=== PATIENT | male | born 1965 | race Caucasian/White ===

== ENCOUNTER 2022-08-08 10:42 | Observation (INO) ==
[2022-08-08] MEDS ORDERED: NS 500 ML IV 500 ML IV ONE (11:44)
[2022-08-08 13:45] LABS: AMYLASE 51 Units/L (25-115); LIPASE 148 Units/L (73-393)
[2022-08-08 14:28] LABS: BASOPHILS # (AUTO) 0.1 X10^3/uL (0.0-0.1); BASOPHILS % (AUTO) 1.8 % (0.2-1.0); EOSINOPHILS # (AUTO) 0.1 x10^3/uL (0.0-0.2); EOSINOPHILS % (AUTO) 2.7 % (0.9-2.9); HEMOGLOBIN 13.7 g/dL (13.5-18.0); LYMPHOCYTES # (AUTO) 1.8 X10^3/uL (1.3-2.9); LYMPHOCYTES % (AUTO) 40.1 % (21.0-51.0); MEAN CORPUSCULAR HEMOGLOBIN 29.5 pg (27.0-34.0); MEAN CORPUSCULAR VOLUME 84.1 fL (80.0-100.0); MEAN PLATELET VOLUME 9.1 fL (7.4-11.0); MONOCYTES # (AUTO) 0.5 x10^3/uL (0.3-0.8); MONOCYTES % (AUTO) 10.7 % (0.0-13.0); NEUTROPHILS % (AUTO) 44.7 % (42.0-75.0); RED BLOOD COUNT 4.64 X10^6/uL (4.7-6.0); RED CELL DISTRIBUTION WIDTH 13.8 % (11.6-16.5); WHITE BLOOD COUNT 4.5 X10^3/uL (3.6-10.0)
[2022-08-08] MEDS: NS 1,000 ML IV 1,000 ML IV SCH ×2 (14:33→22:01)
[2022-08-08 14:36] LABS: ALANINE AMINOTRANSFERASE 59 Units/L (12-78); ALBUMIN 3.3 g/dL (3.4-5.0); ALKALINE PHOSPHATASE 63 Units/L (46-116); ASPARTATE AMINO TRANSFERASE 33 Units/L (15-37); BLOOD UREA NITROGEN 11 mg/dL (7-18); CALCIUM 8.3 mg/dL (8.5-10.1); CARBON DIOXIDE 25.4 mmol/L (21-32); CHLORIDE 107 mmol/L (98-107); COR CA(FOR HYPOALB) 8.9 mg/dL (8.5-10.1); COR NA(FOR HYPERGLY) 142 mmol/L (136-145); CREATININE 1.02 mg/dL (0.70-1.30); SODIUM 141 mmol/L (136-145); TOTAL PROTEIN 6.8 g/dL (6.4-8.2); eGFR NON BLACK RACES > 60 (>60)
[2022-08-08] MEDS: FLAGYL IV PREMIX 500 MG BAG 500 MG/100 ML BAG IV SCH ×2 (14:56→20:53)
[2022-08-08 15:05] LABS: BILIRUBIN,URINE NEGATIVE (NEGATIVE); BLOOD/HEMOGLOBIN,URINE NEGATIVE (NEGATIVE); GLUCOSE, URINE NEGATIVE (NEGATIVE); KETONES,URINE NEGATIVE (NEGATIVE); LEUKOCYTE ESTERASE ,URINE NEGATIVE (NEGATIVE); NITRITES,URINE NEGATIVE (NEGATIVE); PROTEIN,URINE NEGATIVE (NEGATIVE); UROBILINOGEN,URINE NORMAL (NORMAL)
[2022-08-08 15:06] LABS: COLOR,URINE STRAW (YELLOW)
[2022-08-08 15:07] LABS: APPEARANCE,URINE CLEAR (CLEAR)
[2022-08-08] MEDS ORDERED: NS 100 ML IV 100 ML ONE (16:27)
[2022-08-08] MEDS: CIPRO IV 400 MG PREMIX* 400 MG/200 ML IV.SOLN. IV SCH ×2 (16:37→21:45)
[2022-08-08] MEDS ORDERED: DILAUDID INJ IVP PRN (17:27)
[2022-08-08] MEDS: ZOFRAN INJ 4 MG VIAL IVP PRN (17:54)
[2022-08-08] MEDS ORDERED: BENADRYL CAP/TAB 25 MG PO PRN (17:56)
--- NOTE | 2022-08-08 17:59 | CT ---
HISTORYABD PAIN, N/V/D r/o pancreatitisSTUDYABDOMEN/PELVIS WITH CONCOMPARISONTECHNIQUEMultiple axial images of the abdomen and pelvis were obtained from the lung bases to the pubic symphysis after the administration of IV contrast. Dose reduction techniques including Automated Exposure Control (AEC) and adjustment of mA and kV were utilized.FINDINGSThe lung bases are clear without effusion. The heart size is normal. There is diffuse fatty infiltration of the liver. The gallbladder, pancreas, and adrenal glands are normal. The spleen is enlarged measuring up to 17.5 x 16.6 cm. The kidneys are normal in size without stone or hydronephrosis. The stomach and small bowel loops and appendix are normal. Large bowel loops are unremarkable. There is questionably a masslike filling defect in the rectum. Consider correlation with digital rectal exam. Urinary bladder is normal. There is a fat containing right inguinal hernia. There are multiple fat containing periumbilical hernias. There are no worrisome bone marrow lesions.IMPRESSION1. Fatty infiltration of the liver.2. Splenomegaly.3. Question mass in the rectum.4. Fat containing right inguinal hernia and multiple periumbilical hernias.Electronically signed by: Arnold Chavarria (Aug 08, 2022 17:58:00)
[2022-08-08 19:20] LABS: CRYPTOSPORIDIUM PARVUM ANTIGEN NEGATIVE (NEGATIVE); GIARDIA LAMBLIA ANTIGEN NEGATIVE (NEGATIVE)
[2022-08-09] MEDS: NS 1,000 ML IV 1,000 ML IV SCH ×2 (02:01→17:18)
[2022-08-09] MEDS: FLAGYL IV PREMIX 500 MG BAG 500 MG/100 ML BAG IV SCH ×3 (03:15→20:00)
[2022-08-09 05:08] LABS: BASOPHILS % (AUTO) 0.8 % (0.2-1.0); EOSINOPHILS # (AUTO) 0.1 x10^3/uL (0.0-0.2); EOSINOPHILS % (AUTO) 2.9 % (0.9-2.9); HEMATOCRIT 38.5 % (42.0-54.0); HEMOGLOBIN 13.3 g/dL (13.5-18.0); LYMPHOCYTES # (AUTO) 1.9 X10^3/uL (1.3-2.9); LYMPHOCYTES % (AUTO) 43.6 % (21.0-51.0); MEAN CORPUSCULAR HEMOGLOBIN 29.1 pg (27.0-34.0); MEAN CORPUSCULAR HGB CONC 34.6 g/dL (33.0-35.0); MEAN CORPUSCULAR VOLUME 83.9 fL (80.0-100.0); MEAN PLATELET VOLUME 8.7 fL (7.4-11.0); MONOCYTES # (AUTO) 0.5 x10^3/uL (0.3-0.8); MONOCYTES % (AUTO) 10.2 % (0.0-13.0); NEUTROPHILS # (AUTO) 1.9 x10^3/uL (2.2-4.8); NEUTROPHILS % (AUTO) 42.5 % (42.0-75.0); RED BLOOD COUNT 4.58 X10^6/uL (4.7-6.0); RED CELL DISTRIBUTION WIDTH 14.1 % (11.6-16.5); WHITE BLOOD COUNT 4.5 X10^3/uL (3.6-10.0)
[2022-08-09 05:19] LABS: ALANINE AMINOTRANSFERASE 64 Units/L (12-78); ALBUMIN 3.2 g/dL (3.4-5.0); ALKALINE PHOSPHATASE 56 Units/L (46-116); ASPARTATE AMINO TRANSFERASE 38 Units/L (15-37); BLOOD UREA NITROGEN 10 mg/dL (7-18); CALCIUM 8.7 mg/dL (8.5-10.1); CARBON DIOXIDE 32.6 mmol/L (21-32); CHLORIDE 108 mmol/L (98-107); COR CA(FOR HYPOALB) 9.3 mg/dL (8.5-10.1); COR NA(FOR HYPERGLY) 146 mmol/L (136-145); CREATININE 1.21 mg/dL (0.70-1.30); SODIUM 145 mmol/L (136-145); TOTAL PROTEIN 6.7 g/dL (6.4-8.2); eGFR NON BLACK RACES > 60 (>60)
--- NOTE | 2022-08-09 07:07 | RAD ---
HISTORYAbdominal painSTUDYKUBCOMPARISONCT abdomen pelvis 08/08/2022FINDINGSThe abdominal gas pattern is nonspecific and nonobstructive. No abnormal masses or abnormal calcifications are identified. Regional skeleton is intact. There is contrast throughout the colon from the patient's prior CT.IMPRESSIONUnremarkable KUBElectronically signed by: MEGHANN ELAINE (Aug 09, 2022 07:06:13)
[2022-08-09] MEDS: CIPRO IV 400 MG PREMIX* 400 MG/200 ML IV.SOLN. IV SCH ×2 (09:21→21:22)
[2022-08-09] MEDS ORDERED: TORADOL 30 MG VIAL IVP PRN (10:04)
[2022-08-09] MEDS ORDERED: MORPHINE SULFATE INJ 2 MG INJ IVP PRN (10:36)
--- NOTE | 2022-08-09 10:53 | DR.PROGNOT ---
Hospital Progress Notes - Progress Note for Day of: Progress Note Date: 08/09/22 - Chief Complaint Chief Complaint: had one loose BM today ..no vomiting . less abdominal pain .. more of a back pain today .. C Dif was negative . abdominal CT showed abnormal rectum , possible mass . - Past Medical Family Social History Past Med/Fam/Surg Hx: No changes since H&P Allergies: Allergies No Known Drug Allergies Allergy (Verified 08/08/22 14:35) - Review Of Systems ROS: No change since H&P - Vital Signs Vital Signs: Temperature 98.0 F Pulse Rate [Left Radial] 52 Respiratory Rate 18 Blood Pressure [Left Arm] 119/62 Blood Pressure [Right Arm] 143/72 O2 Sat by Pulse Oximetry 98 - Physical Exam Oriented: Normal Eyes: Normal Ear: Normal Nose: Normal Throat: Normal Respiratory: Normal Cardiovascular: Normal : Normal GI:Auscultation: Normal GI:Palpation: Normal GI: Tenderness: Other (soft abdomn with lower and RLQ tenderness .. BS+) Speech Pattern: Clear, Appropriate - Laboratory and Diagnostics Result Diagrams: 08/09/22 04:07 08/09/22 04:07 Labs: 08/08/22 17:45 Stool - Final Laboratory WBC 4.5 X10^3/uL (3.6-10.0) 08/09/22 04:07 RBC 4.58 X10^6/uL (4.7-6.0) L 08/09/22 04:07 Hgb 13.3 g/dL (13.5-18.0) L 08/09/22 04:07 Hct 38.5 % (42.0-54.0) L 08/09/22 04:07 MCV 83.9 fL (80.0-100.0) 08/09/22 04:07 MCH 29.1 pg (27.0-34.0) 08/09/22 04:07 MCHC 34.6 g/dL (33.0-35.0) 08/09/22 04:07 RDW 14.1 % (11.6-16.5) 08/09/22 04:07 Plt Count 162 X10^3/uL (150.0-450.0) 08/09/22 04:07 MPV 8.7 fL (7.4-11.0) 08/09/22 04:07 Neut % (Auto) 42.5 % (42.0-75.0) 08/09/22 04:07 Lymph % (Auto) 43.6 % (21.0-51.0) 08/09/22 04:07 [place] % (Auto) 10.2 % (0.0-13.0) 08/09/22 04:07 Eos % (Auto) 2.9 % (0.9-2.9) 08/09/22 04:07 Baso % (Auto) 0.8 % (0.2-1.0) 08/09/22 04:07 Neut # (Auto) 1.9 x10^3/uL (2.2-4.8) L 08/09/22 04:07 Lymph # (Auto) 1.9 X10^3/uL (1.3-2.9) 08/09/22 04:07 [place] # (Auto) 0.5 x10^3/uL (0.3-0.8) 08/09/22 04:07 Eos # (Auto) 0.1 x10^3/uL (0.0-0.2) 08/09/22 04:07 Baso # (Auto) 0.0 X10^3/uL (0.0-0.1) 08/09/22 04:07 Absolute Nucleated RBC 0.0 /100WBC 08/09/22 04:07 Sodium 145 mmol/L (136-145) 08/09/22 04:07 Corrected Sodium 146 mmol/L (136-145) H 08/09/22 04:07 Potassium 4.4 mmol/L (3.5-5.1) 08/09/22 04:07 Chloride 108 mmol/L (98-107) H 08/09/22 04:07 Carbon Dioxide 32.6 mmol/L (21-32) H 08/09/22 04:07 BUN 10 mg/dL (7-18) 08/09/22 04:07 Creatinine 1.21 mg/dL (0.70-1.30) 08/09/22 04:07 Est GFR (MDRD) Af Amer > 60 (>60) 08/09/22 04:07 Est GFR (MDRD) Non-Af > 60 (>60) 08/09/22 04:07 Glucose 140 mg/dL (65-99) H 08/09/22 04:07 Calcium 8.7 mg/dL (8.5-10.1) 08/09/22 04:07 Corrected Calcium 9.3 mg/dL (8.5-10.1) 08/09/22 04:07 Total Bilirubin 0.50 mg/dL (0.2-1.0) 08/09/22 04:07 AST 38 Units/L (15-37) H 08/09/22 04:07 ALT 64 Units/L (12-78) 08/09/22 04:07 Alkaline Phosphatase 56 Units/L (46-116) 08/09/22 04:07 Total Protein 6.7 g/dL (6.4-8.2) 08/09/22 04:07 Albumin 3.2 g/dL (3.4-5.0) L 08/09/22 04:07 Globulin 3.5 g/dL (2.5-4.5) 08/09/22 04:07 Albumin/Globulin Ratio 0.9 Ratio (1.1-2.1) L 08/09/22 04:07 Amylase 51 Units/L (25-115) 08/08/22 13:05 Lipase 148 Units/L (73-393) 08/08/22 13:05 Specimen Type Clean catch urine 08/08/22 14:54 Urine Color Straw (YELLOW) 08/08/22 14:54 Urine Appearance Clear (CLEAR) 08/08/22 14:54 Urine pH 6.0 (5.0 - 8.0) 08/08/22 14:54 Ur Specific [place] 1.020 (1.000-1.030) 08/08/22 14:54 Urine Protein Negative (NEGATIVE) 08/08/22 14:54 Urine Glucose (UA) Negative (NEGATIVE) 08/08/22 14:54 Urine Ketones Negative (NEGATIVE) 08/08/22 14:54 Urine Blood Negative (NEGATIVE) 08/08/22 14:54 Urine Nitrite Negative (NEGATIVE) 08/08/22 14:54 Urine Bilirubin Negative (NEGATIVE) 08/08/22 14:54 Urine Urobilinogen Normal (NORMAL) 08/08/22 14:54 Ur Leukocyte Esterase Negative (NEGATIVE) 08/08/22 14:54 Stl Occult Blood (IFOB) Negative (NEGATIVE) 08/08/22 17:45 Stool for White Cells Positive (NEGATIVE) A 08/08/22 17:45 Stl C. diff Tox B Gene Negative (NEGATIVE) 08/08/22 17:45 Stl C. diff [id number] Presumptive negative (NEGATIVE) 08/08/22 17:45 Cryptosporid parvum Ag Negative (NEGATIVE) 08/08/22 17:45 Giardia lamblia Ag Negative (NEGATIVE) 08/08/22 17:45 - Assessment and Plan 2: severe diarrhea , possible rectal mass . abdominal pain ,. for colonoscopy in AM . on bowel prep today ..
[2022-08-09] MEDS ORDERED: GOLYTELY or GAVILYTE or Equivalent PO NR (11:00)
[2022-08-09] MEDS: ZOFRAN INJ 4 MG VIAL IVP PRN (17:07)
--- NOTE | 2022-08-09 21:53 | DR.UPDATE ---
H&P Update Prescription drug monitoring program results: PDMP reviewed and no concerns identified H&P Reviewed: Yes Any changes to H&P?: Yes Changes noted:: WAS A DIRECT ADMISSION FROM THE OFFICE DUE TO COMPLAINTS OF INTRACTABLE ABDOMINAL PAIN, DIARRHEA, NAUSEA, FATIGUE, AND FEVER. SYMPTOMS STARTED ABOUT 10 DAYS AGO. ABDOMINAL PAIN IS DESCRIBED DIFFUSE, IN THE LOWER REGIONS. IT IS CRAMPING. HE HAS HAD LOW GRADE FEVER, BUT DENIES ANY RECTAL BLEEDING. HE WAS TREATED WITH ORAL ANTIBIOTICS, BUT DENIED IMPROVEMENT DESPITE COMPLIANCE WITH MEDS. ON ARRIVAL, VITALS WERE: 98.0-50-14-97%-121/86. LABS WERE OBTAINED. WBC 4.5, RBC 4.64, HGB 13.7, HCT 39.0, PLT COUNT 165, SODIUM 141, POTASSIUM 4.1, CHLORIDE 107, CARBON DIOXIDE 25.4, BUN 11, CREATININE 1.02, GLUCOSE 131, CALCIUM 8.3, TOTAL BILI 0.50, AST 33, ALT 59, ALK PHOS 63, TOTAL PROTEIN 6.8, ALBUMIN 3.3, AMYLASE 51, LIPASE 148. STOOL WAS POSITIVE FOR WHITE CELLS. C-DIFF AND OCCULT BLOOD NEGATIVE. HE REPORTS HAVING A RECENT COLOGUARD TEST WHICH WAS NEGATIVE. AN ABDOMEN/PELVIS CT WITH CONTRAST WAS OBTAINED AND REVEALED: The lung bases are clear without effusion. The heart size is normal. There is diffuse fatty infiltration of the liver. The gallbladder, pancreas, and adrenal glands are normal. The spleen is enlarged measuring up to 17.5 x 16.6 cm. The kidneys are normal in size without stone or hydronephrosis. The stomach and small bowel loops and appendix are normal. Large bowel loops are unrem arkable. There is questionably a masslike filling defect in the rectum. Consider correlation with digital rectal exam. Urinary bladder is normal. There is a fat containing right inguinal hernia. There are multiple fat containing periumbilical hernias. There are no worrisome bone marrow lesions. HE WAS STARTED ON NORMAL SALINE AT 75 ML/HR, CIPRO 400MG IV Q12, FLAGYL 500MG IV Q8H, TORADOL 30MG IV Q8H PRN, MORPHINE 2MG IV Q4H PRN, ZOFRAN 4MG IV Q6H PRN. WE WILL CONSULT , GENERAL SURGEON. OTHERWISE, WE WILL FOLLOW-UP WITH AM LABS AND CONTINUE TO MONITOR. TIME SPENT ON CLINICAL ASSESSMENT, REVIEWING LABS AND IMAGING, DECISION MAKING, AND DOCUMENTATION GREATER THAN 75 MINUTES. Patient was examined?: Yes
[2022-08-10] MEDS: FLAGYL IV PREMIX 500 MG BAG 500 MG/100 ML BAG IV SCH ×3 (03:22→19:33)
[2022-08-10] MEDS: NS 1,000 ML IV 1,000 ML IV SCH ×2 (05:02→20:42)
[2022-08-10 06:35] LABS: BASOPHILS % (AUTO) 0.5 % (0.2-1.0); EOSINOPHILS # (AUTO) 0.1 x10^3/uL (0.0-0.2); EOSINOPHILS % (AUTO) 2.4 % (0.9-2.9); HEMATOCRIT 36.1 % (42.0-54.0); LYMPHOCYTES # (AUTO) 1.9 X10^3/uL (1.3-2.9); LYMPHOCYTES % (AUTO) 44.7 % (21.0-51.0); MEAN CORPUSCULAR HGB CONC 35.9 g/dL (33.0-35.0); MEAN CORPUSCULAR VOLUME 83.5 fL (80.0-100.0); MEAN PLATELET VOLUME 8.6 fL (7.4-11.0); MONOCYTES # (AUTO) 0.4 x10^3/uL (0.3-0.8); MONOCYTES % (AUTO) 8.1 % (0.0-13.0); NEUTROPHILS # (AUTO) 1.9 x10^3/uL (2.2-4.8); NEUTROPHILS % (AUTO) 44.3 % (42.0-75.0); RED BLOOD COUNT 4.32 X10^6/uL (4.7-6.0); RED CELL DISTRIBUTION WIDTH 13.8 % (11.6-16.5); WHITE BLOOD COUNT 4.4 X10^3/uL (3.6-10.0)
[2022-08-10 06:38] LABS: ALANINE AMINOTRANSFERASE 60 Units/L (12-78); ALBUMIN 2.9 g/dL (3.4-5.0); ALKALINE PHOSPHATASE 51 Units/L (46-116); ASPARTATE AMINO TRANSFERASE 37 Units/L (15-37); BLOOD UREA NITROGEN 10 mg/dL (7-18); CALCIUM 8.6 mg/dL (8.5-10.1); CARBON DIOXIDE 26.9 mmol/L (21-32); CHLORIDE 110 mmol/L (98-107); COR CA(FOR HYPOALB) 9.5 mg/dL (8.5-10.1); COR NA(FOR HYPERGLY) 145 mmol/L (136-145); CREATININE 1.12 mg/dL (0.70-1.30); SODIUM 144 mmol/L (136-145); TOTAL PROTEIN 6.1 g/dL (6.4-8.2); eGFR NON BLACK RACES > 60 (>60)
[2022-08-10] MEDS: CIPRO IV 400 MG PREMIX* 400 MG/200 ML IV.SOLN. IV SCH ×2 (08:37→20:42)
[2022-08-10] MEDS ORDERED: POTASSIUM CHL 60 MEQ/NS 0.45% 500 ML IV PRN (09:24)
[2022-08-10] MEDS ORDERED: POTASSIUM CHLORIDE LIQ 20 MEQ UDC PO PRN (09:24)
[2022-08-10] MEDS ORDERED: MICRO K EXTEN CAP 10 MEQ PO PRN (09:24)
[2022-08-10] MEDS ORDERED: K-DUR TAB 20 MEQ PO PRN (09:24)
[2022-08-10] MEDS ORDERED: POTASSIUM CHL 40 MEQ/NS 0.45% 500 ML IV PRN (09:24)
[2022-08-10] MEDS ORDERED: KLOR-CON PO PRN (09:24)
[2022-08-10] MEDS ORDERED: K-RIDER 10 MEQ/NS 100 ML 10 MEQ/100 ML BAG IV PRN (09:24)
[2022-08-10] MEDS ORDERED: VERSED ONE (14:53)
[2022-08-10] MEDS ORDERED: DIPRIVAN VIAL 20 ML ONE (14:53)
[2022-08-10] MEDS ORDERED: D5 LR 1,000 ML 1,000 ML IV ONE (14:55)
[2022-08-11] MEDS: FLAGYL IV PREMIX 500 MG BAG 500 MG/100 ML BAG IV SCH (03:32)
[2022-08-11 06:37] LABS: BASOPHILS % (AUTO) 0.6 % (0.2-1.0); EOSINOPHILS # (AUTO) 0.1 x10^3/uL (0.0-0.2); EOSINOPHILS % (AUTO) 2.2 % (0.9-2.9); HEMATOCRIT 37.5 % (42.0-54.0); HEMOGLOBIN 13.2 g/dL (13.5-18.0); LYMPHOCYTES % (AUTO) 38.7 % (21.0-51.0); MEAN CORPUSCULAR HEMOGLOBIN 29.5 pg (27.0-34.0); MEAN CORPUSCULAR HGB CONC 35.1 g/dL (33.0-35.0); MEAN PLATELET VOLUME 8.4 fL (7.4-11.0); MONOCYTES # (AUTO) 0.4 x10^3/uL (0.3-0.8); MONOCYTES % (AUTO) 7.6 % (0.0-13.0); NEUTROPHILS # (AUTO) 2.7 x10^3/uL (2.2-4.8); NEUTROPHILS % (AUTO) 50.9 % (42.0-75.0); RED BLOOD COUNT 4.47 X10^6/uL (4.7-6.0); RED CELL DISTRIBUTION WIDTH 14.2 % (11.6-16.5); WHITE BLOOD COUNT 5.3 X10^3/uL (3.6-10.0)
[2022-08-11 06:43] LABS: ALANINE AMINOTRANSFERASE 75 Units/L (12-78); ALKALINE PHOSPHATASE 56 Units/L (46-116); ASPARTATE AMINO TRANSFERASE 55 Units/L (15-37); BLOOD UREA NITROGEN 10 mg/dL (7-18); CALCIUM 8.6 mg/dL (8.5-10.1); CARBON DIOXIDE 27.1 mmol/L (21-32); CHLORIDE 110 mmol/L (98-107); COR CA(FOR HYPOALB) 9.4 mg/dL (8.5-10.1); COR NA(FOR HYPERGLY) 146 mmol/L (136-145); CREATININE 1.19 mg/dL (0.70-1.30); SODIUM 146 mmol/L (136-145); TOTAL PROTEIN 6.4 g/dL (6.4-8.2); eGFR NON BLACK RACES > 60 (>60)
[2022-08-11] MEDS: CIPRO IV 400 MG PREMIX* 400 MG/200 ML IV.SOLN. IV SCH (08:44)
[2022-08-11] MEDS: NS 1,000 ML IV 1,000 ML IV SCH (10:25)
[2022-08-11 10:26] VITALS: BP 129/63
== END 2022-08-11 11:38 | disposition home or self-care (01) ==
LOC: MED/SURG
PROVIDERS: ADMIT Internal Medicine; ATTEND Internal Medicine
DX: R10.84 Generalized abdominal pain; R19.7 Diarrhea, unspecified; D12.5 Benign neoplasm of sigmoid colon; K52.89 Other specified noninfective gastroenteritis and colitis; K62.89 Other specified diseases of anus and rectum; R11.2 Nausea with vomiting, unspecified; D12.8 Benign neoplasm of rectum; D12.2 Benign neoplasm of ascending colon